=== PATIENT | male | born 1965 | race Two or more races ===

== ENCOUNTER 2017-09-03 19:51 | Emergency (ER) | payer OTHER ==
[2017-09-03 19:59] VITALS: BP 141/78
--- NOTE | 2017-09-03 20:55 | RADIOLOGY REPORT (SQ) ---
EXAM DESCRIPTION: WRIST LEFT 3 VIEWS COMPLETED DATE/TIME: 09/03/2017 8:41 pm REASON FOR STUDY: pain COMPARISON: None. NUMBER OF VIEWS: Three views. TECHNIQUE: AP, lateral, and oblique radiographic images acquired of the left wrist. LIMITATIONS: None. FINDINGS: MINERALIZATION: Normal. BONES: Minimally displaced fracture of the distal radial metaphysis and mildly displaced fracture of the ulnar styloid. Bones otherwise intact. SOFT TISSUES: Soft tissue swelling. Vascular calcifications. OTHER: No other significant finding. IMPRESSION: DISTAL RADIAL METAPHYSIS AND ULNAR STYLOID FRACTURES ABOVE. TECHNICAL DOCUMENTATION: JOB ID: [id number] [employer]- All Rights Reserved
[2017-09-03] MEDS ORDERED: HYDROCODONE/ACETAMINOPHEN 5-325 MG TABLET PO ONE (22:03)
--- NOTE | 2017-09-03 22:08 | ER Document Report ---
HPI - HPI Patient complains to provider of: Left wrist pain Onset: Just prior to arrival Onset/Duration: Sudden Quality of pain: Throbbing Severity: Moderate Pain Level: 4 Context: Patient states he was pulling the cord on a generator injuring his left wrist. Marrti used for translation. Associated Symptoms: None Exacerbated by: Movement Relieved by: Denies Similar symptoms previously: No Recently seen / treated by doctor: No - ROS ROS below otherwise negative: Yes Systems Reviewed and Negative: Yes All other systems reviewed and negative - CONSTITUTIONAL Constitutional: DENIES: Fever - EENT EENT: DENIES: Congestion - NEURO Neurology: DENIES: Headache - CARDIOVASCULAR Cardiovascular: DENIES: Chest pain - RESPIRATORY Respiratory: DENIES: Trouble Breathing - GASTROINTESTINAL Gastrointestinal: DENIES: Abdominal Pain - URINARY Urinary: DENIES: Dysuria - MUSCULOSKELETAL Musculoskeletal: REPORTS: Extremity pain - DERM Skin Color: Normal - Left wrist Past Medical History - General Information source: Patient - Social History Smoking Status: Never Smoker Frequency of alcohol use: None Drug Abuse: None Lives with: Family Family History: Reviewed & Not Pertinent Patient has suicidal ideation: No Patient has homicidal ideation: No - Medical History Medical History: Negative Surgical Hx: Negative Vertical Provider Document - CONSTITUTIONAL Agree With Documented VS: Yes Exam Limitations: No Limitations General Appearance: WD/WN, No Apparent Distress - INFECTION CONTROL TRAVEL OUTSIDE OF THE [place] IN LAST 30 DAYS: No - HEENT HEENT: Atraumatic, Normocephalic - RESPIRATORY Respiratory: Breath Sounds Normal, No Respiratory Distress O2 Sat by Pulse Oximetry: 98 - CARDIOVASCULAR Cardiovascular: Regular Rate, Regular Rhythm - MUSCULOSKELETAL/EXTREMETIES Musculoskeletal/Extremeties: Tender, Edema - Left wrist Notes: Neurovascular and sensation intact to left extremity - NEURO Level of Consciousness: Awake, Alert, Appropriate - DERM Integumentary: Warm, Dry Course - Vital Signs Vital signs: Temp Pulse Resp BP Pulse Ox 98.3 F 61 18 141/78 H 98 09/03/17 19:57 09/03/17 19:57 09/03/17 19:57 09/03/17 19:57 09/03/17 19:57 Procedures - Immobilization Left Wrist Pre-Proc Neuro Vasc Exam: Normal Immobilizer type: Volar splint, Sling Performed by: PCT Post-Proc Neuro Vasc Exam: Normal Alignment checked and good: Yes Discharge - Discharge Clinical Impression: Closed fracture of left distal radius and ulna Qualifiers: Encounter type: initial encounter Qualified Code(s): S52.502A - Unspecified fracture of the lower end of left radius, initial encounter for closed fracture Condition: Good Disposition: HOME, SELF-CARE Additional Instructions: Ice and elevate left wrist Motrin for pain, may take Derby as needed for pain Do not remove move splint Follow-up with orthopedic for further evaluation of fractures, call Wednesday for follow-up appointment Return as needed Prescriptions: Hydrocodone/Acetaminophen [Derby 5-325 mg Tablet] 1 tab PO PRN PRN #15 tablet PRN Reason: Referrals: LILLIAN PRADO DO [ACTIVE STAFF] - Follow up as needed
== END 2017-09-03 22:30 | disposition home or self-care (01) ==
LOC: EDBD 19:51 → ER 19:51
PROC: 2W3DX1Z Immobilization of Left Lower Arm using Splint (ICD-10-PCS; principal; 2017-09-03)
DX: S52.502A Unspecified fracture of the lower end of left radius, initial encounter for closed fracture (principal); X50.3XXA Overexertion from repetitive movements, initial encounter
CPT/HCPCS: 99283